=== PATIENT | male | born 1955 | race Hispanic/Latino ===

== ENCOUNTER → 2021-04-02 | Outpatient (CLI) | payer SELFPAY | LOC: WCC 10:43 | PROVIDERS: ATTEND Family Medicine Adult Medicine | DX: L03.115 Cellulitis of right lower limb (principal); S91.301A Unspecified open wound, right foot, initial encounter; R60.0 Localized edema; I10 Essential (primary) hypertension; Y92.69 Other specified industrial and construction area as the place of occurrence of the external cause | CPT/HCPCS: 87071; 87075; 87205 ==

== ENCOUNTER → 2021-04-09 | Outpatient (CLI) | payer OTHER | LOC: WCC 10:14 | PROVIDERS: ATTEND Family Medicine Adult Medicine | DX: L03.115 Cellulitis of right lower limb (principal); S91.301A Unspecified open wound, right foot, initial encounter; R60.0 Localized edema; I10 Essential (primary) hypertension; Y92.69 Other specified industrial and construction area as the place of occurrence of the external cause | CPT/HCPCS: 87071; 87075; 87205 ==

== ENCOUNTER → 2021-04-16 | Outpatient (CLI) | payer SELFPAY | LOC: WCC 09:59 | PROVIDERS: ATTEND Family Medicine Adult Medicine | DX: L03.115 Cellulitis of right lower limb (principal); S91.301A Unspecified open wound, right foot, initial encounter; R60.0 Localized edema; I10 Essential (primary) hypertension; Y92.69 Other specified industrial and construction area as the place of occurrence of the external cause | CPT/HCPCS: 87071; 87075; 87205 ==

== ENCOUNTER → 2021-04-17 | Outpatient (CLI) | payer OTHER | LOC: WCC 10:09 | PROVIDERS: ATTEND Internal Medicine Infectious Disease | DX: L03.115 Cellulitis of right lower limb (principal); S91.301A Unspecified open wound, right foot, initial encounter; R60.0 Localized edema; I10 Essential (primary) hypertension; Y92.69 Other specified industrial and construction area as the place of occurrence of the external cause ==

== ENCOUNTER → 2021-04-30 | Outpatient (CLI) | payer OTHER | LOC: WCC 09:47 | PROVIDERS: ATTEND Family Medicine Adult Medicine | DX: L03.115 Cellulitis of right lower limb (principal); S91.301A Unspecified open wound, right foot, initial encounter; R60.0 Localized edema; I10 Essential (primary) hypertension; Y92.69 Other specified industrial and construction area as the place of occurrence of the external cause ==

== ENCOUNTER → 2021-05-14 | Outpatient (CLI) | payer OTHER | LOC: WCC 10:20 | PROVIDERS: ATTEND Family Medicine Adult Medicine | DX: L03.115 Cellulitis of right lower limb (principal); S91.301A Unspecified open wound, right foot, initial encounter; R60.0 Localized edema; I10 Essential (primary) hypertension; Y92.69 Other specified industrial and construction area as the place of occurrence of the external cause ==

== ENCOUNTER → 2021-05-18 | Outpatient (CLI) | payer OTHER | LOC: WCC 09:46 | PROVIDERS: ATTEND Family Medicine Adult Medicine | DX: S91.301A Unspecified open wound, right foot, initial encounter (principal); L03.115 Cellulitis of right lower limb; R60.0 Localized edema; I10 Essential (primary) hypertension; Y92.69 Other specified industrial and construction area as the place of occurrence of the external cause ==

== ENCOUNTER → 2021-05-21 | Outpatient (CLI) | payer OTHER | LOC: WCC 10:20 | PROVIDERS: ATTEND Family Medicine Adult Medicine | DX: S91.301A Unspecified open wound, right foot, initial encounter (principal); L03.115 Cellulitis of right lower limb; R60.0 Localized edema; I10 Essential (primary) hypertension; Y92.69 Other specified industrial and construction area as the place of occurrence of the external cause ==

== ENCOUNTER → 2021-05-25 | Outpatient (CLI) | payer OTHER | LOC: WCC 08:12 | PROVIDERS: ATTEND Family Medicine Adult Medicine | DX: S91.301A Unspecified open wound, right foot, initial encounter (principal); R60.0 Localized edema; I10 Essential (primary) hypertension; Y92.69 Other specified industrial and construction area as the place of occurrence of the external cause ==

== ENCOUNTER → 2021-05-28 | Outpatient (CLI) | payer OTHER | LOC: WCC 09:01 | PROVIDERS: ATTEND Family Medicine Adult Medicine | DX: S91.301A Unspecified open wound, right foot, initial encounter (principal); R60.0 Localized edema; I10 Essential (primary) hypertension; Y92.69 Other specified industrial and construction area as the place of occurrence of the external cause ==

== ENCOUNTER → 2021-06-01 | Outpatient (CLI) | payer OTHER | LOC: WCC 09:04 | PROVIDERS: ATTEND Family Medicine Adult Medicine | DX: S91.301A Unspecified open wound, right foot, initial encounter (principal); I10 Essential (primary) hypertension; Y92.69 Other specified industrial and construction area as the place of occurrence of the external cause ==

== ENCOUNTER → 2021-06-04 | Outpatient (CLI) | payer OTHER | LOC: WCC 08:39 | PROVIDERS: ATTEND Family Medicine Adult Medicine | DX: S91.301A Unspecified open wound, right foot, initial encounter (principal); I10 Essential (primary) hypertension; Y92.69 Other specified industrial and construction area as the place of occurrence of the external cause ==

== ENCOUNTER → 2021-06-08 | Outpatient (CLI) | payer OTHER | LOC: WCC 12:34 | PROVIDERS: ATTEND Family Medicine Adult Medicine | DX: S91.301A Unspecified open wound, right foot, initial encounter (principal); Y92.69 Other specified industrial and construction area as the place of occurrence of the external cause; I10 Essential (primary) hypertension ==

== ENCOUNTER → 2021-06-11 | Outpatient (CLI) | payer OTHER | LOC: WCC 08:58 | PROVIDERS: ATTEND Family Medicine Adult Medicine | DX: S91.301A Unspecified open wound, right foot, initial encounter (principal); I10 Essential (primary) hypertension; Y92.69 Other specified industrial and construction area as the place of occurrence of the external cause ==